=== PATIENT | male | born 1965 | race Caucasian/White ===

== ENCOUNTER 2021-03-22 23:47 | Emergency (ER) | payer MEDICAID ==
[2021-03-22] MEDS ORDERED: LISINOPRIL AND1 TA2 PO (23:55)
[2021-03-22] MEDS ORDERED: GLUCOTROL 5M5 MG/TAB PO (23:56)
[2021-03-22] MEDS ORDERED: AMITRIPTYLINE H10 M2 PO (23:56)
[2021-03-22] MEDS ORDERED: NIFEDIPINE ER30 M3 PO (23:58)
[2021-03-22] MEDS ORDERED: GLUCOPHAGE PO (23:58)
[2021-03-23 00:21] LABS: BASO # 0.02 (0.02-0.10); EOS # 0.07 (0.04-0.40); EOS % 0.5 % (0.0-4.0); HEMATOCRIT 40.1 % (42.0-52.0); HEMOGLOBIN 13.6 g/dL (13.5-18.0); LYMPH# 2.19 (1.50-4.00); MEAN CELL VOLUME 89 fl (78-100); MEAN CORPUSCULAR HEMOGLOBIN 30 pg (27-31); MEAN CORPUSCULAR HGB CONC 34 g/dL (33-37); NEU # 10.56 (1.40-6.50); PLATELET COUNT 425 K/mm3 (130-400); RED CELL DISTRIBUTION WIDTH 12.2 % (11.5-14.5); WHITE BLOOD COUNT 13.9 K/mm3 (4.8-10.8)
[2021-03-23 00:30] LABS: ALBUMIN 3.9 g/dL (3.5-5.0); POTASSIUM 3.2 mmol/L (3.5-5.1); SODIUM 136 mmol/L (136-145)
[2021-03-23 00:31] LABS: CALCIUM 10.4 mg/dL (8.3-10.5)
[2021-03-23 00:32] LABS: GLUCOSE 274 mg/dL (75-110)
[2021-03-23 00:33] LABS: CARBON DIOXIDE 21 mmol/L (22-29); TOTAL PROTEIN 7.1 g/dL (6.4-8.3)
[2021-03-23 00:34] LABS: TOTAL BILIRUBIN 0.3 mg/dL (0.2-1.2)
[2021-03-23 00:37] LABS: ALCOHOL IN-HOUSE < 10 mg/dL (<10)
[2021-03-23 00:38] LABS: AST-SGOT 12 U/L (5-34)
[2021-03-23 00:39] LABS: ALT/SGPT 12 U/L (0-55)
[2021-03-23 00:45] LABS: TROPONIN-I < 0.03 ng/mL (<0.030)
[2021-03-23 01:18] LABS: URINE APPEARANCE CLEAR; URINE COLOR YELLOW
[2021-03-23 01:19] LABS: URINE BILIRUBIN NEGATIVE (NEGATIVE); URINE BLOOD NEGATIVE (NEGATIVE); URINE KETONE 1+ (NEGATIVE); URINE LEUKOCYTE ESTERASE NEGATIVE (NEGATIVE); URINE NITRATE NEGATIVE (NEGATIVE); URINE PROTEIN(semi-quant) TRACE mg/dL (NEGATIVE); URINE UROBILINOGEN NORMAL (NORMAL); URINE WBC 0-1 /hpf (0-3)
[2021-03-23 04:57] LABS: POTASSIUM 3.7 mmol/L (3.5-5.1); SODIUM 136 mmol/L (136-145)
[2021-03-23 04:58] LABS: CALCIUM 8.6 mg/dL (8.3-10.5)
[2021-03-23 04:59] LABS: GLUCOSE 228 mg/dL (75-110)
[2021-03-23 05:00] LABS: CARBON DIOXIDE 20 mmol/L (22-29)
[2021-03-23 05:14] LABS: TROPONIN-I < 0.03 ng/mL (<0.030)
[2021-03-23] MEDS ORDERED: GLUCOPHAGE PO (07:09)
[2021-03-23] MEDS ORDERED: PROTONIX20 M1 PO (07:09)
[2021-03-23] MEDS ORDERED: GLUCOTROL 5M5 MG/TAB PO (07:09)
[2021-03-23] MEDS ORDERED: NIFEDIPINE ER30 M3 PO (07:09)
[2021-03-23 07:20] VITALS: BP 127/83
== END 2021-03-23 07:20 | disposition home or self-care (01) ==
LOC: ED 23:47
PROVIDERS: Nurse Practitioner Family
DX: E86.0 Dehydration (principal); N17.9 Acute kidney failure, unspecified; K29.70 Gastritis, unspecified, without bleeding; E11.65 Type 2 diabetes mellitus with hyperglycemia; R91.1 Solitary pulmonary nodule; K44.9 Diaphragmatic hernia without obstruction or gangrene; R00.0 Tachycardia, unspecified; F17.210 Nicotine dependence, cigarettes, uncomplicated; I10 Essential (primary) hypertension; J44.9 Chronic obstructive pulmonary disease, unspecified; Z91.14 Patient's other noncompliance with medication regimen; Z79.899 Other long term (current) drug therapy; Z79.84 Long term (current) use of oral hypoglycemic drugs
CPT/HCPCS: C9113; J1885; J2405; J3480; J3490; J7030; Q9967